=== PATIENT | male | born 1990 | race Caucasian/White ===

== ENCOUNTER 2018-04-21 09:48 | Observation (INO) ==
[2018-04-21] MEDS ORDERED: Isovue-370 500 ML INFUS..BTL IV ONE (10:02)
[2018-04-21 10:23] LABS: Bilirubin,Urine Small (Negative); Blood,Urine Negative (Negative); Clarity,Urine Clear (Clear); Color,Urine Dark Yellow (Yellow); Glucose,Urine (UA) Normal (Normal); Ketones,Urine 40 mg/dL (Negative); Leukocyte Esterase,Urine Negative (Negative); Nitrite,Urine Negative (Negative); Protein,Urine 30 mg/dL (Neg-Trace); Specific Gravity,Urine > 1.030 (1.010-1.025); Urobilinogen,Urine Normal (Normal)
[2018-04-21 10:26] LABS: Bacteria,Urine None Seen per hpf (None-Few); Hyaline Casts,Urine Moderate per lpf (None-Few); Squamous Epithelial Cell,Urine Many per lpf (None-Few)
[2018-04-21 10:33] LABS: Basophils % 0.2 %; Hematocrit 52.1 % (37.5-50.1); Hemoglobin 18.1 g/dL (12.9-16.9); Immature Granulocytes % 0.3 % (0-4); Lymphocytes # 1.9 K/mcL (0.6-4.6); Lymphocytes % 10.3 %; Mean Corpuscular HGB Conc 34.7 g/dL (31.6-35.5); Mean Corpuscular Hemoglobin 28.7 pg (28.0-33.3); Mean Corpuscular Volume 82.7 fL (83.0-100.0); Mean Platelet Volume 9.8 fL (9.4-12.4); Monocytes # 1.5 K/mcL (0.0-1.3); Monocytes % 8.2 %; Neutrophils # 14.5 K/mcL (1.6-8.9); Platelet Count 223 K/mcL (140-400); Red Cell Distribution Width 13.1 % (11.5-14.5)
[2018-04-21 10:58] LABS: Alanine Aminotransferase 23 Units/L (7-52); Albumin 5.1 g/dL (3.5-5.7); Albumin/Globulin Ratio 2.2 (1.1-2.2); Alkaline Phosphatase 58 Units/L (34-104); Aspartate Amino Transferase 14 Units/L (13-39); BUN/Creatinine Ratio 15 (6-26); Bilirubin,Direct 0.2 mg/dL (0.0-0.2); Bilirubin,Indirect 1.1 mg/dL (0.0-1.2); Bilirubin,Total 1.3 mg/dL (0.3-1.0); Blood Urea Nitrogen 17 mg/dL (6-20); Calcium 9.9 mg/dL (8.6-10.3); Carbon Dioxide 27 mEq/L (23-29); Chloride 99 mEq/L (98-107); Globulin 2.3 g/dL (2.4-3.5); Glucose 109 mg/dL (70-105); Lipase 7 Units/L (11-82); Osmolality,Calculated 280 (280-300); Potassium 3.6 mEq/L (3.5-5.1); Sodium 134 mEq/L (136-145); Total Protein 7.4 g/dL (6.4-8.9); eGFR For African Americans > 60 (> 60); eGFR For Non-African Americans > 60 (> 60)
--- NOTE | 2018-04-21 12:07 | Emergency Department Note ---
Disposition Clinical Impression: Acute appendicitis Disposition: Admitted As Inpatient Condition: Fair Referrals: NONE,PCP [Primary Care Provider] - Abdominal Pain HPI - General Chief Complaint: ED Abdominal Pain Stated Complaint: acute appy Time Seen by Provider: 04/21/18 10:01 Source: patient Mode of arrival: ambulatory Limitations: no limitations Nursing Notes Reviewed: Yes Vital Signs Reviewed: Yes - History of Present Illness HPI Narrative: 27-year-old male presents to emergency Department with abdominal pain. Patient states the pain started as a generalized abdominal pain and is continually worsened throughout the past 24 hours. Pain is now located in the right lower quadrant. He was initially seen at an urgent care facility who sent him to the emergency department for further care and evaluation. Patient initially had nausea last night but now it has resolved. He denies fever or chills, vomiting , diarrhea, chest pain, shortness of breath. No other recent trauma. No new medications. Pain Scale: 4 - Related Data Allergies Allergy/AdvReac Type Severity Reaction Status Date / Time No Known Allergies Allergy Verified 04/21/18 09:59 All systems ED: reviewed and negative except as stated. Review of Systems: As Per HPI Abdominal Pain PMH - Past Medical History Medical history: Reports: non-contributory - Social History Smoking status: Current every day smoker Alcohol use: Reports: occasionally Physical Exam General: Alert and in no acute distress Skin: Warm, dry, intact Head: Normocephalic and atraumatic Neck: Supple, trachea midline and no tenderness Cardiovascular: RRR, no murmur, normal perfusion Respiratory: CTAB, no wheezing, cough, or respiratory distress Musculoskeletal: Normal strength, no tenderness, swelling or deformity GI: Soft, tender to palpation in the right lower quadrant with mild guarding without evidence of rigidity, or rebound., nondistended. Bowel sounds present Neuro: A&O to person, place, time and situation. No focal deficits noted on exam Psychiatric: cooperative and appropriate mood and affect. - General Limitations: no limitations General appearance: alert Course Vital Signs Temperature 98.7 F 04/21/18 09:58 Pulse Rate 99 04/21/18 09:58 Respiratory Rate 18 04/21/18 09:58 Blood Pressure 118/82 04/21/18 09:58 O2 Sat by Pulse Oximetry 96 04/21/18 09:58 Temperature 98.7 F 04/21/18 10:06 Pulse Rate 99 04/21/18 10:06 Respiratory Rate 18 04/21/18 10:06 Blood Pressure 118/82 04/21/18 10:06 O2 Sat by Pulse Oximetry 96 04/21/18 10:06 Oxygen Delivery Oxygen Delivery Room Air Abdominal Pain - MDM Narrative Medical decision making narrative: Patient has acute appendicitis and the CT scan. Patient will be admitted to the surgeon for likely appendectomy. - Medical Records Medical records reviewed: Yes I reviewed the patient's medical records. - Lab Data Lab results reviewed: Yes I reviewed the patient's lab results. Result diagrams: 04/21/18 10:02 04/21/18 10:02 Lab Results 04/21/18 04/21/18 04/21/18 Range/Units 10:02 10:02 10:14 WBC 17.9 H (4.3-11.1) K/mcL RBC 6.30 H (4.19-5.50) M/mcL Hgb 18.1 H (12.9-16.9) g/dL Hct 52.1 H (37.5-50.1) % MCV 82.7 L (83.0-100.0) fL MCH 28.7 (28.0-33.3) pg MCHC 34.7 (31.6-35.5) g/dL RDW 13.1 (11.5-14.5) % Plt Count 223 (140-400) K/mcL MPV 9.8 (9.4-12.4) fL Immature Gran % 0.3 (0-4) % Seg Neutrophils % 81.0 % Lymphocytes % 10.3 % Monocytes % 8.2 % Eosinophils % 0.0 % Basophils % 0.2 % Neutrophils # 14.5 H (1.6-8.9) K/mcL Lymphocytes # 1.9 (0.6-4.6) K/mcL Monocytes # 1.5 H (0.0-1.3) K/mcL Eosinophils # 0.0 (0.0-0.6) K/mcL Basophils # 0.0 (0.0-0.2) K/mcL Sodium 134 L (136-145) mEq/L Potassium 3.6 (3.5-5.1) mEq/L Chloride 99 (98-107) mEq/L Carbon Dioxide 27 (23-29) mEq/L BUN 17 (6-20) mg/dL Creatinine 1.13 (0.70-1.30) mg/dL Est GFR ( Amer) > 60 (> 60) Est GFR (Non-Af Amer) > 60 (> 60) BUN/Creatinine Ratio 15 (6-26) Glucose 109 H (70-105) mg/dL Calculated Osmolality 280 (280-300) Calcium 9.9 (8.6-10.3) mg/dL Total Bilirubin 1.3 H (0.3-1.0) mg/dL Direct Bilirubin 0.2 (0.0-0.2) mg/dL Indirect Bilirubin 1.1 (0.0-1.2) mg/dL AST 14 (13-39) Units/L ALT 23 (7-52) Units/L Alkaline Phosphatase 58 (34-104) Units/L Serum Total Protein 7.4 (6.4-8.9) g/dL Albumin 5.1 (3.5-5.7) g/dL Globulin 2.3 L (2.4-3.5) g/dL Albumin/Globulin Ratio 2.2 (1.1-2.2) Lipase 7 L (11-82) Units/L Ur Specimen Adequacy See below A Urine Color Dark Yellow (Yellow) Urine Clarity Clear (Clear) Urine pH 6.0 (5.0-8.0) pH Units Ur Specific [place] > 1.030 H (1.010-1.025) Urine Protein 30 H (Neg-Trace) mg/dL Urine Glucose (UA) Normal (Normal) mg/dL Urine Ketones 40 H (Negative) mg/dL Urine Blood Negative (Negative) Urine Nitrite Negative (Negative) Urine Bilirubin Small H (Negative) Urine Urobilinogen Normal (Normal) mg/dL Ur Leukocyte Esterase Negative (Negative) Urine Microscopic RBC 5-15 H (0-3) per hpf Urine Microscopic WBC 3-5 H (0-3) per hpf Ur Squamous Epith Cells Many H (None-Few) per lpf Urine Bacteria None Seen (None-Few) per hpf Hyaline Casts Moderate H (None-Few) per lpf Ur Culture Indicated? NO (NO) - Radiology Data Radiology results reviewed: Yes I reviewed the patient's radiology results.
--- NOTE | 2018-04-21 12:50 | General Surg History&Physical ---
Date of Encounter: 04/21/18 Time of Encounter: 12:30 Assessment and Plan (1) Acute appendicitis Current Visit: Yes Status: Acute The assessment and plan as outlined above was discussed with the patient and/or family members who expressed understanding and agreement. All questions were answered. NPO IV fluids IV antibiotics Supportive care and pain control Serial abdominal exams PPI therapy daily Incentive Spirometer every 1 hour while awake Repeat am labs Qualifiers: Acute appendicitis type: with localized peritonitis Qualified Code(s): K35.3 - Acute appendicitis with localized peritonitis History of Present Illness Chief complaint: Abdominal pain HPI: Mr. Ge is a 27 year old male who states that he had sudden onset of mid- abdominal pain yesterday at noon. He states that the pain was sharp/stabbing and constant. Denies any alleviating factors. Movement aggrevates the pain. He states that the pain did migrate into his RLQ last evening. He has never experienced pain like this in the past. He admits to multiple episodes of nausea with associated vomiting yesterday. Did vomit a small amount of blood after multiple episodes of vomiting and dry heaves. Admits to constipation and his last bowel movement was a day and a half ago. Denies any hematochezia of melena. Admits to feeling chills as though he had a fever yesterday. He did not check his temperature. Denies any chest pains or shortness of breath. Denies any difficulty with urination. CT scan shows evidence of appendicitis with an appendicolith. Past Med Surg Social Fam HX - Past Medical History Source: patient Medical history: other (headaches) Psychiatric history: no psych history - Past Surgical History Surgical History: other ([place] teeth extraction) - Social History Smoking Status: Current every day smoker (smokes through a hookah) Smokeless Tobacco Status: No Alcohol use: rarely Drug use: none Current living situation: Home - Independent Activity Level: Independent ambulation - Family History Mother Living Status: Still Living Hx Family GI Disorders: Yes (Perforated gastric ulcer) Father Living Status: Age at : 43 Cause of : Suicide Sister Living Status: Still Living Hx Family Respiratory Disorders: Yes (Asthma) Medications and Allergies No Known Home Drugs 04/21/18 [History] 3 Allergy/AdvReac Type Severity Reaction Status Date / Time No Known Allergies Allergy Verified 04/21/18 09:59 Review of Systems All systems PM: reviewed and no additional remarkable complaints except as stated (in the HPI) All systems PM: The remainder of the systems were reviewed and are negative General Surgery Exam Initial Vital Signs Temp Pulse Resp BP Pulse Ox 98.7 F 99 18 118/82 96 04/21/18 09:58 04/21/18 09:58 04/21/18 09:58 04/21/18 09:58 04/21/18 09:58 - General physical appearance well developed, well nourished, moderate pain - Eyes normal ocular movement - ENT normal mucosa, atraumatic, normocephalic - Neck trachea midline - Respiratory normal respiratory effort, clear to auscultation - Cardiovascular Cardiovascular exam: Present: RRR - Abdomen Abdomen general surgery: Present: bowel sounds present, soft, tender Abdominal Tenderness: Present: RLQ - Integumentary Integumentary general surgery: Present: warm and dry - Neurologic Present: CN 2-12 grossly intact - Psychiatric Psychiatric general surgery: Present: appropriate, oriented to person, oriented to place, oriented to time, speech is normal, memory intact Results - Labs 04/21/18 10:02 04/21/18 10:02 Abnormal lab results WBC 17.9 K/mcL (4.3-11.1) H 04/21/18 10:02 RBC 6.30 M/mcL (4.19-5.50) H 04/21/18 10:02 Hgb 18.1 g/dL (12.9-16.9) H 04/21/18 10:02 Hct 52.1 % (37.5-50.1) H 04/21/18 10:02 MCV 82.7 fL (83.0-100.0) L 04/21/18 10:02 Neutrophils # 14.5 K/mcL (1.6-8.9) H 04/21/18 10:02 Monocytes # 1.5 K/mcL (0.0-1.3) H 04/21/18 10:02 Sodium 134 mEq/L (136-145) L 04/21/18 10:02 Glucose 109 mg/dL (70-105) H 04/21/18 10:02 Total Bilirubin 1.3 mg/dL (0.3-1.0) H 04/21/18 10:02 Globulin 2.3 g/dL (2.4-3.5) L 04/21/18 10:02 Lipase 7 Units/L (11-82) L 04/21/18 10:02 Ur Specimen Adequacy See below A 04/21/18 10:14 Ur Specific [place] > 1.030 (1.010-1.025) H 04/21/18 10:14 Urine Protein 30 mg/dL (Neg-Trace) H 04/21/18 10:14 Urine Ketones 40 mg/dL (Negative) H 04/21/18 10:14 Urine Bilirubin Small (Negative) H 04/21/18 10:14 Urine Microscopic RBC 5-15 per hpf (0-3) H 04/21/18 10:14 Urine Microscopic WBC 3-5 per hpf (0-3) H 04/21/18 10:14 Ur Squamous Epith Cells Many per lpf (None-Few) H 04/21/18 10:14 Hyaline Casts Moderate per lpf (None-Few) H 04/21/18 10:14 Diabetes panel 04/21/18 Range/Units 10:02 Sodium 134 L (136-145) mEq/L Potassium 3.6 (3.5-5.1) mEq/L Chloride 99 (98-107) mEq/L Carbon Dioxide 27 (23-29) mEq/L BUN 17 (6-20) mg/dL Creatinine 1.13 (0.70-1.30) mg/dL Glucose 109 H (70-105) mg/dL Calcium 9.9 (8.6-10.3) mg/dL AST 14 (13-39) Units/L ALT 23 (7-52) Units/L Alkaline Phosphatase 58 (34-104) Units/L Albumin 5.1 (3.5-5.7) g/dL Calcium panel 04/21/18 Range/Units 10:02 Calcium 9.9 (8.6-10.3) mg/dL Albumin 5.1 (3.5-5.7) g/dL Pituitary panel 04/21/18 Range/Units 10:02 Sodium 134 L (136-145) mEq/L Potassium 3.6 (3.5-5.1) mEq/L Chloride 99 (98-107) mEq/L Carbon Dioxide 27 (23-29) mEq/L BUN 17 (6-20) mg/dL Creatinine 1.13 (0.70-1.30) mg/dL Glucose 109 H (70-105) mg/dL Calcium 9.9 (8.6-10.3) mg/dL Adrenal panel 04/21/18 Range/Units 10:02 Sodium 134 L (136-145) mEq/L Potassium 3.6 (3.5-5.1) mEq/L Chloride 99 (98-107) mEq/L Carbon Dioxide 27 (23-29) mEq/L BUN 17 (6-20) mg/dL Creatinine 1.13 (0.70-1.30) mg/dL Glucose 109 H (70-105) mg/dL Calcium 9.9 (8.6-10.3) mg/dL Total Bilirubin 1.3 H (0.3-1.0) mg/dL AST 14 (13-39) Units/L ALT 23 (7-52) Units/L Alkaline Phosphatase 58 (34-104) Units/L Albumin 5.1 (3.5-5.7) g/dL All other labs normal. - Imaging CT scan - abdomen: report reviewed CT scan - pelvis: report reviewed Additional studies: Abdomen/Pelvis CT 04/21/18 10:02 IMPRESSION: Findings are most compatible with acute appendicitis. Appendicolith at the base of the appendix. Moderate amount of inflammation within right lower quadrant, with a small amount of fluid within pelvis. No discrete drainable abscess is identified. No intra-abdominal free air. Severe hepatic steatosis. D/ / Henry Lozada MD / Henry Lozada MD Interpreting Provider: Henry Lozada MD
[2018-04-21] MEDS ORDERED: Naloxone 0.4 MG/ML INJ IVP PRN (12:56)
[2018-04-21] MEDS ORDERED: Ondansetron 4 MG/2 ML VIAL IVP PRN (12:56)
[2018-04-21] MEDS ORDERED: Morphine Oral CONC 5 MG/0.25 ML ORAL.SYG PO PRN (12:59)
[2018-04-21] MEDS ORDERED: OXYCODONE Oral CONC 10 MG/0.5 ML ORAL.SYG SL PRN (12:59)
[2018-04-21] MEDS ORDERED: MORPHINE SUL Oral CONC 10 MG/0.5 ML ORAL.SYG PO PRN (15:30)
[2018-04-21] MEDS: 0.9 % Sodium Chloride 1,000 ML IVC SCH (15:32)
[2018-04-21] MEDS: Piperacillin/Tazobactam 3.375 GM in 0.9 % Sodium Chloride Mini Bag 100 ML IVPB SCH ×2 (15:33→21:08)
[2018-04-21] MEDS ORDERED: Piperacillin/Tazobactam 3.375 GM in 0.9 % Sodium Chloride Mini Bag 100 ML IVPB SCH (16:00)
[2018-04-22] MEDS: Piperacillin/Tazobactam 3.375 GM in 0.9 % Sodium Chloride Mini Bag 100 ML IVPB SCH ×3 (04:49→22:26)
[2018-04-22] MEDS: 0.9 % Sodium Chloride 1,000 ML IVC SCH (04:49)
[2018-04-22 06:25] LABS: Basophils # 0.1 K/mcL (0.0-0.2); Basophils % 0.5 %; Eosinophils % 0.2 %; Hematocrit 50.4 % (37.5-50.1); Hemoglobin 16.6 g/dL (12.9-16.9); Immature Granulocytes % 0.3 % (0-4); Lymphocytes # 1.9 K/mcL (0.6-4.6); Mean Corpuscular HGB Conc 32.9 g/dL (31.6-35.5); Mean Corpuscular Hemoglobin 27.5 pg (28.0-33.3); Mean Corpuscular Volume 83.4 fL (83.0-100.0); Mean Platelet Volume 10.2 fL (9.4-12.4); Monocytes # 0.8 K/mcL (0.0-1.3); Monocytes % 6.7 %; Neutrophils # 9.2 K/mcL (1.6-8.9); Platelet Count 206 K/mcL (140-400); Red Blood Count 6.04 M/mcL (4.19-5.50); Red Cell Distribution Width 13.7 % (11.5-14.5); Segmented Neutrophils % 76.3 %
--- NOTE | 2018-04-22 10:17 | General Surgery Progress Note ---
Date of Encounter: 04/22/18 Time of Encounter: 07:45 - Assessment and Plan (1) Acute appendicitis Current Visit: Yes Status: Acute Patient's WBC count has improved from 17.9 yesterday down to 12.1 today. Patient 's pain has also improved since yesterday. He has been afebrile overnight. BP range of 96-118/53-82. There is conern for possible perforation of appendix based on evidence of small amount of fluid within the pelvis. He has no peritoneal signs on exam. He is currently on day 2 of zosyn. - Continue IVF - Continue zosyn - Continue pain control - Advanced to clear liquids. - Plan for elective appendectomy in 6 weeks. Abdomen/Pelvis CT 04/21/18 10:02 IMPRESSION: 1. Findings are most compatible with acute appendicitis. Appendicolith at the base of the appendix. Moderate amount of inflammation within right lower quadrant, with a small amount of fluid within pelvis. No discrete drainable abscess is identified. No intra-abdominal free air. 2. Severe hepatic steatosis. Findings were discussed with Dr. Tomas at 12:03pm on 04/21/2018. D/ / 04/21/2018 13:04:42 Henry Lozada MD / rain Interpreting Provider: Henry Lozada MD Qualifiers: Acute appendicitis type: with localized peritonitis Qualified Code(s): K35.3 - Acute appendicitis with localized peritonitis Subjective Narrative: Patient says his abdominal pain in the RLQ has decreased since yesterday. He rates the pain as a 8/10 yesterday and today at a 5/10. He says the pain only occurs with movement. He denies any nausea or vomiting. Denies any chest pain or shortness of breath. Denies any fever or chills. Objective VITAL SIGNS: Reviewed. See [facility] GENERAL: no apparent distress. HEENT: [Normocephalic, PER, EOMi, oropharynx pink/moist, no JVD noted.] CV: b/l rad pulses 2+, RRR, no murmurs or gallops, no JVD RESPIRATORY: CTAB without wheezes, rales, or rhonchi ABD: soft, mild tenderness to RLQ, no rebound/guarding/rigidity, no peritoneal signs. Normal bowel sounds. Positive McBurney's point. Positive obturator sign. EXTREMITY: grossly normal motor function, no pedal edema, peripheral pulses 2+ b /l NEUROLOGIC EXAM: AOx3, obeys commands, no speech deficits. PSYCHIATRIC: normal mood and affect SKIN: no gross lesions, rashes, or skin changes Vital Signs - Last 8 Hours Temp Pulse Resp BP Pulse Ox 04/22/18 07:48 96 04/22/18 06:40 98.8 F 82 18 95/53 96 04/22/18 04:13 98.9 F 82 15 109/60 95 Intake and Output 04/21/18 04/22/18 04/22/18 23:59 07:59 15:59 Intake Total 100 / 100 1200 / 1200 Output Total 300 / 300 100 / 100 Balance -200 / -200 1100 / 1100 Intake: IV Fluids 100 / 100 1200 / 1200 0.9 % Sodium Chloride 1,000 ML 1000 / 1000 @ 75 mls/hr IVC .[id number] ANA Rx #:[id number] Zosyn 3.375 GM In 0.9 % Sodium 100 / 100 200 / 200 Chloride (Mini-Bag +) 100 ML @ 25 mls/hr IVPB Q8H ANA Rx#: [id number] Oral 0 / 0 0 / 0 Output: Urine 300 / 300 100 / 100 Other: Meal NPO NPO NPO Percent of Meal Consumed 0% 0% # Bowel Movements 0 Weight 93.7 kg Blood Glucose* 76 Patient Weight 04/22/18 23:59 Weight 93.7 kg - Labs 04/22/18 05:32 04/21/18 10:02 Consult Discharge Plan - Plan Referrals: NONE,PCP [Primary Care Provider] -
[2018-04-23 05:31] LABS: Basophils # 0.1 K/mcL (0.0-0.2); Basophils % 0.9 %; Eosinophils # 0.3 K/mcL (0.0-0.6); Eosinophils % 3.9 %; Hematocrit 44.6 % (37.5-50.1); Immature Granulocytes % 0.3 % (0-4); Lymphocytes # 2.6 K/mcL (0.6-4.6); Lymphocytes % 33.5 %; Mean Corpuscular HGB Conc 33.6 g/dL (31.6-35.5); Mean Corpuscular Hemoglobin 28.5 pg (28.0-33.3); Mean Corpuscular Volume 84.6 fL (83.0-100.0); Mean Platelet Volume 9.8 fL (9.4-12.4); Monocytes # 0.6 K/mcL (0.0-1.3); Monocytes % 7.6 %; Neutrophils # 4.1 K/mcL (1.6-8.9); Platelet Count 183 K/mcL (140-400); Red Blood Count 5.27 M/mcL (4.19-5.50); Red Cell Distribution Width 13.1 % (11.5-14.5); Segmented Neutrophils % 53.8 %
[2018-04-23] MEDS: Piperacillin/Tazobactam 3.375 GM in 0.9 % Sodium Chloride Mini Bag 100 ML IVPB SCH (05:38)
[2018-04-23] MEDS: 0.9 % Sodium Chloride 1,000 ML IVC SCH (09:55)
--- NOTE | 2018-04-23 11:59 | Discharge Summary ---
Date of Encounter: 04/23/18 Time of Encounter: 08:00 - Discharge Diagnosis (1) Acute appendicitis Priority: Primary Status: Acute Qualifiers: Acute appendicitis type: with localized peritonitis Qualified Code(s): K35.3 - Acute appendicitis with localized peritonitis General Surgery Exam VITAL SIGNS: Reviewed. See [facility] GENERAL: no apparent distress. HEENT: [Normocephalic, PER, EOMi, oropharynx pink/moist, no JVD noted.] CV: b/l rad pulses 2+, RRR, no murmurs or gallops, no JVD RESPIRATORY: CTAB without wheezes, rales, or rhonchi ABD: soft, non-tender, no rebound/guarding/rigidity, no peritoneal signs. Normal bowel sounds present. Negative McBurney's Point tenderness. Negative obturator sign. EXTREMITY: grossly normal motor function, no pedal edema, peripheral pulses 2+ b /l NEUROLOGIC EXAM: AOx3, obeys commands, no speech deficits. PSYCHIATRIC: normal mood and affect SKIN: no gross lesions, rashes, or skin changes Initial Vital Signs Temp Pulse Resp BP Pulse Ox 98.7 F 99 18 118/82 96 04/21/18 09:58 04/21/18 09:58 04/21/18 09:58 04/21/18 09:58 04/21/18 09:58 - Hospital Course Hospital course: Mr. Ge is a 27 year old male with no significant PMH that presented on 04/21 for mid-abdominal pain for 1 day. He described multiple episodes of nausea and vomiting. Admitted to [facility] for 2 days. Admitted to a subjective fever the day prior to arrival. CT scan of the abdomen showed findings consistent with acute appendicitis with appendicolith at the base of the appendix. Moderate amount of inflammation within the right lower quadrant with a small amount of fluid within the pelvis was also found, concerning for a possible perforation. WBC count upon arrival was elevated at 17.9. Patient was afebrile. Blood pressure was normotensive. Patient was started on zosyn IV and started on morphine PRN for pain control. WBC continued to improve throughout his hospital stay, with today being normal at 7.7. When seen today, patient says his abdominal pain has considerably improved. He displayed a negative McBurnye's Point tenderness and a negative obturator sign on exam. He has been afebrile throughout his stay here. Blood pressure has been stable. Given the risk for a possible appendiceal perforation, patient will be scheduled for an elective appendectomy 6 weeks from today. He will have a follow-up visit with the surgery clinic with Urszula Kan CNP on May 07 at 0945 am. Patient will be discharged with an 8 day course of Augmentin to take. He was instructed to call our clinic or report to the ER if she develops a fever, increased abdominal pain, nausea, vomiting or weakness. - Time Spent with Patient Total time spent providing and/or coordinating discharge services: - Discharge Medications Prescriptions: Amoxicillin/Clavulanate [Augmentin] 875 mg PO BIDWM 8 Days #16 tablet Ibuprofen 800 mg PO Q8H PRN 7 Days #21 tablet PRN Reason: Pain Home Medications: Amoxicillin/Clavulanate [Augmentin] 875 mg PO BIDWM 8 Days #16 tablet 04/23/18 [ Rx] Ibuprofen 800 mg PO Q8H PRN 7 Days #21 tablet 04/23/18 [Rx] Allergies/Adverse Reactions: 3 Allergy/AdvReac Type Severity Reaction Status Date / Time No Known Allergies Allergy Verified 04/21/18 09:59 Date of admission: 04/21/18 12:44 Primary care physician: PCP NONE Discharging clinician: Zeb Ramirez (Attending: Dr. Martinez) Anticipated date of discharge: 04/23/18 Labs on day of discharge: Labs from last 24 hours 04/23/18 04:56 WBC 7.7 RBC 5.27 Hgb 15.0 D Hct 44.6 MCV 84.6 MCH 28.5 MCHC 33.6 RDW 13.1 Plt Count 183 MPV 9.8 Immature Gran % 0.3 Seg Neutrophils % 53.8 Lymphocytes % 33.5 Monocytes % 7.6 Eosinophils % 3.9 Basophils % 0.9 Neutrophils # 4.1 Lymphocytes # 2.6 Monocytes # 0.6 Eosinophils # 0.3 Basophils # 0.1 - Patient Status Disposition: Home, Self-Care Condition: Fair Functional capacity at discharge: independent ambulation Overall status at discharge: patient is progressing back to baseline - Discharge Instructions Instructions: Appendicitis (DC) Follow Up With: Ilene Molina CNP [Advanced Practice Nurse] - 05/04/18 3:15 pm (You will receive a new patient packet in the mail, please fill out and bring with you. You will also need to bring your photo ID, insurance card and any medications you are on. If you need to cancel, please give a 24 hour notice, which means you will need to call the Friday before on April 24 if you are unable to make your appt. Thank you ) Additional Instructions: Get lots of rest. Sleep when you are feeling tired. You may need help with stairs, bending, or moving around in the home. Use a small pillow to put pressure on your belly. This can make you more comfortable when you cough, laugh, or do other actions. Call your doctor or report to the ED if you experience any of the following: Signs of infection. These include a fever of 100.4F (38C) or higher, chills, pain with passing urine. Blood in vomit or stool Pain in the belly and feeling bloated Yellowing of the skin and the eyes You are not feeling better in 2 to 3 days or you are feeling worse Your follow-up appointment will be with Urszula Kan on May 07 at 0945 AM. - Diet and Activity Activity: resume usual activities as tolerated Diet: advance to your usual diet
[2018-04-23 12:18] VITALS: BP 100/58
== END 2018-04-23 15:01 | disposition home or self-care (01) ==
LOC: 3ANU 09:48 → EMEROO 09:48 → 3ANU 13:16
PROVIDERS: ADMIT Surgery; ATTEND Surgery